=== PATIENT | male | born 1945 | race Caucasian/White ===

== ENCOUNTER 2016-09-20 14:34 | Emergency (ER) | payer MEDICARE, BC ==
[~2016-09-20] VITALS: Ht 177.8 cm; Wt 94.2 kg
[2016-09-20 14:44] VITALS: BP 124/89; PULSE 105; RESP 16; TEMP 98.2; O2SAT 96
[2016-09-20] MEDS ORDERED: TETANUS/DIPHTHERIA TOXOID ADULT 0.5 ML VIAL IM ONE (15:00)
[2016-09-20] MEDS ORDERED: CLINDAMYCIN PHOS 600 MG/4 ML VIAL IM ONE (15:00)
[2016-09-20] MEDS ORDERED: METF500T PO (15:03)
[2016-09-20] MEDS ORDERED: VITA20003 PO (15:03)
[2016-09-20] MEDS ORDERED: IRBE300T11 PO (15:03)
[2016-09-20] MEDS ORDERED: LEVO88TA2 PO (15:03)
[2016-09-20] MEDS ORDERED: VIAG50TA PO (15:03)
[2016-09-20] MEDS ORDERED: FOLI1TAB4 PO (15:03)
[2016-09-20] MEDS ORDERED: ASPI-110 PO (15:03)
[2016-09-20] MEDS ORDERED: METH2.5T PO (15:03)
[2016-09-20] MEDS ORDERED: PERC7.5T13 PO (15:03)
[2016-09-20] MEDS ORDERED: LATA.005%O EACH EYE (15:03)
[2016-09-20] MEDS ORDERED: PRED5TAB PO (15:03)
--- NOTE | 2016-09-20 15:03 | PD ---
HPI Chief Complaint: Fall Time Seen by Provider: 14:54 Travel History International Travel<30 days: No Contact w/Intl Traveler<30days: No Traveled to known affect area: No History of Present Illness HPI Patient presents with complaints of facial trauma and left forehead laceration. Reports that he was walking his dog when he got tripped up by the leash and fell to his face on a concrete pad next to an RV. He normally walks with a cane and was not able to get his hands out in front of him. Denies any loss of consciousness. Denies any headache. Tetanus last given in 2010. Incident occurred approximately 30 minutes prior to arrival. He is a diabetic and takes aspirin daily. PFSH Past Medical History Hx Anticoagulant Therapy: Yes (asa 81mg) Arthritis: Yes (RA) Cardiovascular Problems: Yes (htn on meds) Diabetes: Yes Patient Takes Glucophage: Yes (METFORMIN) Glaucoma: Yes Hypertension: Yes Immunizations Current: Yes Thyroid Disease: Yes Influenza Vaccination: Yes Past Surgical History Thoracic Surgery: Yes (LEFT LUNG LOBECTOMY) Social History Alcohol Use: No Tobacco Use: No (FORMER) Substance Use: No Allergies-Medications (Allergen,Severity, Reaction): Coded Allergies: No Known Allergies (Unverified , 09/20/16) Reported Meds & Prescriptions Reported Meds & Active Scripts Active Bactrim DS (Sulfamethoxazole-Trimethoprim) 800-160 Mg Tab 1 Tab PO BID Reported Percocet (Oxycodone-Acetaminophen) 7.5-325 mg Tab 1 Tab PO HS PRN Viagra (Sildenafil Citrate) 50 Mg Tab 50 Mg PO DAILY PRN Xalatan Opth Drops (Latanoprost) 0.005% Drops 1 Drop EACH EYE HS Aspirin 81 (Aspirin) 81 Mg Tabdr 81 Mg PO DAILY Vitamin D (Cholecalciferol) 2,000 Unit Tab 2,000 Units PO DAILY Irbesartan 300 Mg Tab 300 Mg PO DAILY Folate (Folic Acid) 1 Mg Tab 1 Mg PO MOTUTHFRSASU Methotrexate 2.5 Mg Tab 6 Tab PO WEEKLY Prednisone 5 Mg Tab 5 Mg PO DAILY Metformin (Metformin HCl) 500 Mg Tab 500 Mg PO BIDPC With meals Levothyroxine (Levothyroxine Sodium) 88 Mcg Tab 88 Mcg PO DAILY Review of Systems General / Constitutional: No: Fever Eyes: No: Visual changes HENT: No: Headaches Cardiovascular: No: Chest Pain or Discomfort Respiratory: No: Shortness of Breath Gastrointestinal: No: Abdominal Pain Genitourinary: No: Dysuria Musculoskeletal: No: Pain Skin: No Rash Neurologic: No: Weakness Psychiatric: No: Depression Endocrine: No: Polydipsia Hematologic/Lymphatic: No: Easy Bruising Physical Exam Narrative GENERAL: Well-nourished, well-developed patient. SKIN: Warm and dry. HEAD: Normocephalic. Bilateral epistaxis, laceration above the left forehead measuring approximately 2 cm EYES: No scleral icterus. No injection or drainage. NECK: Supple, trachea midline. No JVD or lymphadenopathy. CARDIOVASCULAR: Regular rate and rhythm without murmurs, gallops, or rubs. RESPIRATORY: Breath sounds equal bilaterally. No accessory muscle use. GASTROINTESTINAL: Abdomen soft, non-tender, nondistended. MUSCULOSKELETAL: No cyanosis, or edema. BACK: Nontender without obvious deformity. No CVA tenderness. Data Data Last Documented VS Vital Signs Date Time Temp Pulse Resp B/P Pulse Ox O2 Delivery O2 Flow Rate FiO2 09/20/16 16:51 79 16 131/70 99 Room Air 09/20/16 14:44 98.2 Orders Tetanus/Diphtheria Tox Adult (Tetanus/Di (09/20/16 15:00) Wound Care (09/20/16 14:55) Clindamycin Inj (Cleocin Inj) (09/20/16 15:00) Facial Bones - Ltd (<3vws) (09/20/16 ) [facility] Medical Decision Making Medical Screen Exam Complete: Yes Emergency Medical Condition: Yes Differential Diagnosis Facial trauma, forehead laceration, concussion, CVA Narrative Course Assessment and plan discussed with patient and and son at bedside Physician Communication Physician Communication Case discussed and care transferred to Dr Alonzo Diagnosis Primary Impression: Forehead laceration Qualified Code: S01.81XA - Forehead laceration, initial encounter Additional Impression: Epistaxis Med/Other Pt SpecificInfo: Prescription(s) given Scripts Sulfamethoxazole-Trimethoprim (Bactrim DS)800-160 Mg Tab1 Tab PO BID #10 TAB Ref 0 Prov:Donovan Alonzo MD 09/20/16 Darrell Lozano MD Sep 20, 2016 15:03
--- NOTE | 2016-09-20 16:45 | PD ---
Data Data Last Documented VS Vital Signs Date Time Temp Pulse Resp B/P Pulse Ox O2 Delivery O2 Flow Rate FiO2 09/20/16 16:51 79 16 131/70 99 Room Air 09/20/16 14:44 98.2 Orders Tetanus/Diphtheria Tox Adult (Tetanus/Di (09/20/16 15:00) Wound Care (09/20/16 14:55) Clindamycin Inj (Cleocin Inj) (09/20/16 15:00) Facial Bones - Ltd (<3vws) (09/20/16 ) MDM Supervised Visit with CHIP: No Narrative Course This case is checked out to me by Dr. Lozano at 4 PM. He had a fall when he tripped over the dog's leash and struck his head. No LOC or headache and denies blood thinners other than baby aspirin. Denies neck pain. Patient agrees to laceration repair. He is aware of the likelihood of scarring but states that this age he doesn't care about scars. LACERATION LOCATION: Left brow LENGTH: 2.5 cm NUMBER OF STITCHES/JOSÉ MIGUEL: 6 sutures REPAIR: The area of the laceration was prepped with Betadine and sterilely draped. The laceration was infiltrated with 3 cc of 1% lidocaine with epinephrine. The wound was copiously irrigated and explored without evidence of foreign body, tendon injury or neurovascular injury. The wound was closed using 5-0 Ethilon. This was a single layer repair. A sterile dressing was applied. The patient was advised to keep the dressing clean and dry. Patient tolerated the procedure well. Patient's extraocular muscles are intact Tolerated well without complication His facial bone x-rays I reviewed and show a nasal bridge fracture. I recommend the patient wait for the radiologist to do a formal reading as facial x-rays are difficult to interpret. Patient is frustrated with the delay. We' ve called radiology and asked them to see if the films could be red but I'm still waiting on that. They are going to leave. I have not recommended they go without the reading but they don't want to wait any longer. Recommend icing of the nasal bridge Antibiotics written for wound infection prophylaxis Diagnosis Primary Impression: Forehead laceration Qualified Code: S01.81XA - Forehead laceration, initial encounter Additional Impression: Epistaxis Additional Instruction: Discussed general wound care in depth, antibiotic ointment and oral antibiotic as prescribed. Patient does have an appointment with his primary care provider on Thursday. Tylenol for pain. Scripts Sulfamethoxazole-Trimethoprim (Bactrim DS)800-160 Mg Tab1 Tab PO BID #10 TAB Ref 0 Prov:Donovan Alonzo MD 09/20/16 Disposition: 01 DISCHARGE HOME Condition: Stable Donovan Alonzo MD Sep 20, 2016 16:45
[2016-09-20] MEDS ORDERED: BACT800T5 PO (16:46)
[2016-09-20 16:51] VITALS: BP 131/70; PULSE 79; RESP 16; O2SAT 99
--- NOTE | 2016-09-20 17:38 | RADHPO ---
EXAM DATE/TIME: 09/20/2016 15:43 [facility] COMPARISON: No previous studies available for comparison. INDICATIONS : Fell hit nose and forehead MEDICAL HISTORY : None. SURGICAL HISTORY : None. ENCOUNTER: Initial ACUITY: 1 day PAIN SCORE: 5/10 LOCATION: Bilateral facial FINDINGS: Two view examination of the facial bones demonstrates mildly displaced nasal bone fracture. The left paranasal sinuses are clear. CONCLUSION: 1. Mildly displaced nasal bone fracture. Clement Johnson MD on September 20, 2016 at 17:36 Board Certified Radiologist. This report was verified electronically.
== END 2016-09-20 17:15 | disposition home or self-care (01) ==
LOC: PHED 14:34
DX: S01.81XA Laceration without foreign body of other part of head, initial encounter (principal); Z79.82 Long term (current) use of aspirin; E11.9 Type 2 diabetes mellitus without complications; I10 Essential (primary) hypertension; E07.9 Disorder of thyroid, unspecified; R04.0 Epistaxis; W01.0XXA Fall on same level from slipping, tripping and stumbling without subsequent striking against object, initial encounter; Y93.K1 Activity, walking an animal; Y99.8 Other external cause status
CPT/HCPCS: 12011; 70140